=== PATIENT | female | born 1940 | race Caucasian/White ===

== ENCOUNTER 2019-05-23 11:21 | Inpatient (IN) | payer OTHER ==
--- OUTSIDE RECORDS SUMMARY | 2019-05-23 11:24 | XMS REPORT ---
:1940 [facility] Address [address] [place] [address] Care Team Providers Name Role Phone Unavailable Unavailable Unavailable Problems This patient has no known problems. Allergies, Adverse Reactions, Alerts This patient has no known allergies or adverse reactions. Medications This patient has no known medications. Encounters Start End Encounter Admission Attending Care Care Encounter Date/Time Date/Time Type Type Clinicians Facility Department ID 2019-04-26 2019-04-26 Outpatient [id number] 12:32:00 12:32:00
--- OUTSIDE RECORDS SUMMARY | 2019-05-23 11:24 | XMS REPORT ---
:1940 [facility] Team Providers Name Role Phone Ashley, Windy Provider Role Unavailable Allergies No Known Allergies Problems Problem Type Condition Code Onset Dates Condition Status Problem Obesity (BMI 30-39.9) E66.9 Active Problem Depression F32.9 Active Problem Diabetes E11.9 Active Problem Allergic rhinitis J30.9 Active Problem Essential hypertension I10 Active Problem Edema leg R60.0 Active Problem Controlled type 2 diabetes mellitus E11.9 Active without complication, without long-term current use of insulin Problem Cerebrovascular accident (CVA), I63.9 Active unspecified mechanism Problem Unsteady gait R26.81 Active Problem 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) Problem Hearing loss of both ears due to H61.23 Active cerumen impaction Problem Dysphagia as late effect of I69.391 Active cerebrovascular accident (CVA) Problem Type 2 diabetes mellitus with E11.22 Active diabetic chronic kidney disease Problem Chronic kidney disease, stage 4 N18.4 Active (severe) Problem History of CVA with residual I69.30 Active deficit Problem Coronary artery disease involving I25.10 Active [place] coronary artery of [place] heart without angina pectoris Problem CKD (chronic kidney disease), stage N18.4 Active IV Problem Chronic a-fib I48.2 Active Problem Chronic diastolic congestive heart I50.32 Active failure Problem Hospital discharge follow-up Z09 Active Problem Exposure to second hand smoke Z77.22 Active Problem Dyspnea, unspecified type R06.00 Active Problem At risk for falls Z91.81 Active Problem Familial hypercholesteremia E78.01 Active Problem Stented coronary artery Z95.5 Active Problem Non-ST elevation (NSTEMI) I21.4 Active myocardial infarction Problem Stage 3 chronic kidney disease N18.3 Active Problem 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
--- OUTSIDE RECORDS SUMMARY | 2019-05-23 11:24 | XMS REPORT ---
:1940 Author Organization eClinicalWorks Care Team Providers Name Role Phone Ashley, Windy Provider Role Unavailable Allergies, Adverse Reactions, Alerts Substance Reaction Event Type N.K.D.A. 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) Problem CKD (chronic kidney disease), stage N18.4 Active IV Problem Chronic a-fib I48.2 Active Assessment History of CVA with residual I69.30 Active deficit Problem Chronic diastolic congestive heart I50.32 Active failure Problem Hospital discharge follow-up Z09 Active Problem Exposure to second hand smoke Z77.22 Active Problem Dyspnea, unspecified type R06.00 Active Assessment Chronic kidney disease, stage 4 N18.4 Active (severe) Problem At risk for falls Z91.81 Active Assessment Chronic a-fib I48.2 Active Problem Familial hypercholesteremia E78.01 Active Assessment Cerebrovascular accident (CVA), I63.9 Active unspecified mechanism Problem Stented coronary artery Z95.5 Active Assessment Essential hypertension I10 Active Problem Non-ST elevation (NSTEMI) I21.4 Active myocardial infarction Assessment Familial hypercholesteremia E78.01 Active Problem Stage 3 chronic kidney disease N18.3 Active Assessment Dysphagia as late effect of I69.391 Active cerebrovascular accident (CVA) Problem 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 Problem Hyperlipidemia due to dietary fat E78.4 Active intake Problem Cold intolerance R68.89 Active Medications Medication Code Code Instructions Start End Status Dosage System Date Date Pradaxa [facility] 39565031873 75 MG Orally Active 1 capsule Twice a day Atorvastatin [facility] 13443319528 10 MG Orally Active 1 tablet Calcium Once a day Lasix [facility] 66534043076 40 MG Orally Inactive 1 tablet Once a day Metolazone [facility] 51269498432 2.5 MG Orally Active 1 tablet Once a day Spironolactone [facility] 51493729335 50 MG Orally Active 1 tablet Once a day with food Praluent [facility] 22731191711 150 MG/ML Active as Subcutaneous directed once every 2 weeks GlyBURIDE [facility] 20909671215 2.5 MG Orally Active 1/2 tab Once a day with dinner Xarelto [facility] 17488622181 15 MG Orally Inactive 1 tablet Once a day with food Metoprolol [facility] 69544694588 25 MG Orally Active 1 capsule Succinate Once a day Metoprolol [facility] 98475014502 50 MG Orally Active 1 tablet Tartrate Twice a day with food Lanoxin [facility] 67782334369 125 MCG Orally Active as directed Eliquis 2.5 mg [facility] 13196827337 2.5 mg by mouth Inactive one twice daily Bumetanide [facility] 47118160356 2 MG Orally Active as directed Folbee Plus CZ [facility] 28505622449 5 MG Orally Active 1 tablet Once a day Plavix [facility] 97494065700 75 MG Orally Active 1 tablet Once a day Colace [facility] 51266592013 100 MG Orally Active 1 capsule twice a day as needed Bumex [facility] 15453970690 1 MG Orally Active as directed Enalapril Maleate [facility] 72589364366 20 MG Orally Active 1 tablet Once a day Results No Known Results Summary Purpose eClinicalWorks Submission
--- OUTSIDE RECORDS SUMMARY | 2019-05-23 11:24 | XMS REPORT ---
:1940 Author Organization eClinicalWorks Care Team Providers Name Role Phone Ashley, Na Provider Role Unavailable Allergies No Known Allergies Problems Problem Type Condition Code Onset Dates Condition Status Assessment Screening for malignant neoplasm of Z12.39 Active breast Assessment Type 2 diabetes mellitus with E11.22 Active diabetic chronic kidney disease Assessment Chronic diastolic congestive heart I50.32 Active failure Problem Obesity (BMI 30-39.9) E66.9 Active Problem [...] Problem Coronary artery disease involving I25.10 Active [place] coronary artery of [place] heart without angina pectoris Assessment 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) Problem CKD (chronic kidney disease), stage N18.4 Active IV Problem Chronic a-fib I48.2 Active Assessment History of CVA with residual I69.30 Active deficit Problem Chronic diastolic congestive heart I50.32 Active failure Assessment Screening for osteoporosis Z13.820 Active Problem Hospital discharge follow-up Z09 Active Problem [...] Start End Status Dosage System Date Date Praluent [facility] 19585779096 150 MG/ML Active as Subcutaneous directed once every 2 weeks Bumex [facility] 91496156116 1 MG Orally Active as directed GlyBURIDE [facility] 97845163927 2.5 MG Orally Active 1/2 tab Once a day with dinner Lanoxin [facility] 15279605681 125 MCG Orally Active as directed Metoprolol [facility] 80501803704 25 MG Orally Active 1 capsule Succinate Once a day Atorvastatin [facility] 48898860873 10 MG Orally Active 1 tablet Calcium Once a day Lasix [facility] 07094513068 40 MG Orally Inactive 1 tablet Once a day Metolazone [facility] 52628731164 2.5 MG Orally Active 1 tablet Once a day Pradaxa [facility] 90208408881 75 MG Orally Active 1 capsule Twice a day Metoprolol [facility] 98912953375 50 MG Orally Active 1 tablet Tartrate Twice a day with food Eliquis 2.5 mg [facility] 63899234042 2.5 mg by mouth Inactive one twice daily Xarelto [facility] 69344332232 15 MG Orally Inactive 1 tablet Once a day with food Enalapril Maleate [facility] 37507291649 20 MG Orally Active 1 tablet Once a day Spironolactone [facility] 74519915789 50 MG Orally Active 1 tablet Once a day with food Folbee Plus CZ [facility] 36938135615 5 MG Orally Active 1 tablet Once a day Colace [facility] 39303759710 100 MG Orally Active 1 capsule twice a day as needed Plavix [facility] 91595340802 75 MG Orally Active 1 tablet Once a day Bumetanide [facility] 38719713037 2 MG Orally Active as directed Results No Known Results Summary Purpose eClinicalWorks Submission
--- OUTSIDE RECORDS SUMMARY | 2019-05-23 11:24 | XMS REPORT ---
[...] Problem Coronary artery disease involving I25.10 Active [place] coronary artery of [place] heart without angina pectoris Problem CKD (chronic [...] intake Problem Cold intolerance R68.89 Active Medications No Known Medications Results No Known Results Summary Purpose eClinicalWorks Submission
[2019-05-23] MEDS ORDERED: CLINDAMYCIN 900MG/D5W 900 MG/50 ML IVPB IV ONE (12:31)
[2019-05-23 12:57] LABS: Basophils % 0.6 % (0-1.3); Hematocrit 39.7 % (36.0-45.0); Lymphocytes % 16.7 % (15.3-44.8); MPV 9.5 fL (7.6-11.3); RBC Red Blood Cell Count 4.23 M/uL (3.86-4.86)
[2019-05-23 13:10] LABS: Potassium 4.5 mmol/L (3.5-5.1)
--- NOTE | 2019-05-23 13:13 | RAD REPORT ---
EXAM DESCRIPTION: RAD - Foot Right 2 View - 05/23/2019 1:05 pm CLINICAL HISTORY: Pain;Swelling COMPARISON: No comparisons FINDINGS: Moderate posterior and plantar calcaneal spurs. Soft tissue swelling is seen along the flakita sum of the mid and forefoot. No fracture is visualized.
--- NOTE | 2019-05-23 13:32 | EDPHYS ---
Physician Documentation [facility] Name: Michelle Campbell Age: 79 yrs Sex: Female : 1940 Arrival Date: 05/23/2019 Time: 11:23 Bed 24 Private MD: ED Physician Manjeet Paulino HPI: 05/23 16:45 This 79 yrs old Female presents to ER via Wheelchair with complaints of right kdr great tow pain and swelling. 16:45 The patient presents with pain, that is acute, swelling, tenderness. The complaints kdr affect the right foot. Context: The problem was sustained at home, resulted from The patient states that she was trimming her nails and may have cut her nail too close and now has cellulitis to the right great toe. Onset: The symptoms/episode began/occurred gradually, 2 day(s) ago. Modifying factors: The symptoms are alleviated by nothing, the symptoms are aggravated by weight bearing, movement. Associated signs and symptoms: The patient has no apparent associated signs or symptoms. Severity of symptoms: At their worst the symptoms were mild, in the emergency department the symptoms are unchanged. The patient has not experienced similar symptoms in the past. The patient has not recently seen a physician. Historical: - Allergies: 11:33 No Known Allergies; ca1 - PMHx: 11:33 Atrial Fib; Diabetes - NIDDM; CHF; ca1 16:12 CKD; TIA; vc - PSHx: 11:33 Hysterectomy; ca1 - Immunization history:: Adult Immunizations up to date, Pneumococcal vaccine is not up to date, Flu vaccine is up to date. - Coronavirus screen:: The patient has NOT traveled to [place], [place], or [place] in the past 14 days. The patient has NOT had contact with known/suspected case of Coronavirus?. - Social history:: Smoking status: Patient denies any tobacco usage or history of. - Ebola Screening: : Patient negative for fever greater than or equal to 101.5 degrees Fahrenheit, and additional compatible Ebola Virus Disease symptoms Patient denies exposure to infectious person Patient denies travel to an Ebola-affected area in the 21 days before illness onset No symptoms or risks identified at this time. ROS: 16:45 Constitutional: Negative for fever, chills, and weight loss, Eyes: Negative for injury, kdr pain, redness, and discharge, Neck: Negative for injury, pain, and swelling, Cardiovascular: Negative for chest pain, palpitations, and edema, Respiratory: Negative for shortness of breath, cough, wheezing, and pleuritic chest pain, Abdomen/GI: Negative for abdominal pain, nausea, vomiting, diarrhea, and constipation, Back: Negative for injury and pain, : Negative for injury, bleeding, discharge, and swelling, Skin: Negative for injury, rash, and discoloration, Neuro: Negative for headache, weakness, numbness, tingling, and seizure activity. Psych: Negative for depression, anxiety, suicide ideation, homicidal ideation, and hallucinations, Allergy/Immunology: Negative for hives, rash, and allergies, Endocrine: Negative for neck swelling, polydipsia, polyuria, polyphagia, and marked weight changes, Hematologic/Lymphatic: Negative for swollen nodes, abnormal bleeding, and unusual bruising. 16:45 MS/extremity: Positive for erythema, pain, swelling, tenderness, of the medial aspect of right toes, plantar aspect of right first toe, ball of right foot, right first toe and Right first toenail. Exam: 16:45 Musculoskeletal/extremity: ROM: limited active range of motion, limited passive range kdr of motion, in the medial aspect of right toes, plantar aspect of right first toe, right first toe and Right first toenail, Circulation is intact in all extremities. Sensation intact. Weight bearing: can bear weight with assistance only, Erythema to right great toe. 16:52 Constitutional: This is a well developed, well nourished patient who is awake, alert, kdr and in no acute distress. Head/Face: Normocephalic, atraumatic. Vital Signs: 11:33 BP 134 / 104; Pulse 96; Resp 19 S; Temp 97.6(O); Pulse Ox 96% on R/A; Weight 81.65 kg ca1 (R); Height 5 ft. 7 in. (170.18 cm) (R); Pain 2/10; 12:00 BP 109 / 77; Pulse 92; Resp 20; Pulse Ox 99% on R/A; vc 14:00 BP 134 / 121; Pulse 97; Resp 20; Pulse Ox 97% ; vc 15:30 BP 123 / 107; Pulse 79; Resp 18; Pulse Ox 96% on R/A; vc 11:33 Body Mass Index 28.19 (81.65 kg, 170.18 cm) ca1 MDM: 13:32 Patient medically screened. kdr 16:52 Data reviewed: vital signs, nurses notes, lab test result(s), radiologic studies. kdr Counseling: I had a detailed discussion with the patient and/or guardian regarding: the historical points, exam findings, and any diagnostic results supporting the discharge/admit diagnosis, lab results, radiology results, the need for further work-up and treatment in the hospital. 05/23 12:20 Order name: CBC with Diff; Complete Time: 13:01 kdr 05/23 12:20 Order name: Chem 7; Complete Time: 13:24 kdr 05/23 12:20 Order name: Foot Right 2 View XRAY; Complete Time: 13:24 kdr 05/23 12:20 Order name: Blood Culture Adult (2) kdr 05/23 15:05 Order name: Urine Dipstick--Ancillary (enter results) bd 05/23 14:07 Order name: Consistent Carb (ADA) 2000 Juan; Complete Time: 15:29 EDMS Administered Medications: 12:53 Drug: Clindamycin 900 mg Route: IVPB; Infused Over: 30 mins; Site: right antecubital; vc 13:23 Follow up: IV Status: Completed infusion vc 13:51 Drug: Bactrim (160 mg-800 mg (DS) 1 tablet Route: PO; vc 15:28 Follow up: Response: No adverse reaction vc Disposition: 05/23/19 13:32 Hospitalization ordered by Jordon Mark for Inpatient Admission. Preliminary diagnosis is Cellulitis of right lower limb - Right great toe. - Bed requested for Telemetry/MedSurg (Inpatient). - Status is Inpatient Admission. vc - Condition is Fair. - Problem is new. - Symptoms are unchanged. Signatures: Dispatcher [employer] EDMS Khadra Menchaca Kevin, MD MD kdr Sara De León RN RN ca1 Yvonne Gray RN RN vc Corrections: (The following items were deleted from the chart) 15:22 13:32 Hospitalization Ordered by Jordon Mark MD for Inpatient Admission. Preliminary bd diagnosis is Cellulitis of right lower limb - Right great toe. Bed requested for Telemetry/MedSurg (Inpatient). Status is Inpatient Admission. Condition is Fair. Problem is new. Symptoms are unchanged. kdr 16:20 15:22 05/23/2019 13:32 Hospitalization Ordered by Jordon Mark MD for Inpatient vc Admission. Preliminary diagnosis is Cellulitis of right lower limb - Right great toe. Bed requested for Telemetry/MedSurg (Inpatient). Status is Inpatient Admission. Condition is Fair. Problem is new. Symptoms are unchanged. bd
--- NOTE | 2019-05-23 13:32 | ER ---
Nurse's Notes [facility] Name: Michelle Campbell Age: 79 yrs Sex: Female : 1940 Arrival Date: 05/23/2019 Time: 11:23 Bed 24 Private MD: Diagnosis: Cellulitis of right lower limb-Right great toe Presentation: 05/23 11:28 Presenting complaint: Patient states: R foot swollen x 5-7 days.. C/o pain on that ca1 foot. Denies fever. Transition of care: patient was not received from another setting of care. Onset of symptoms was May 23, 2019. Risk Assessment: Do you want to hurt yourself or someone else? Patient reports no desire to harm self or others. Initial Sepsis Screen: Does the patient meet any 2 criteria? No. Patient's initial sepsis screen is negative. Does the patient have a suspected source of infection? No. Patient's initial sepsis screen is negative. Care prior to arrival: None. 11:28 Method Of Arrival: Wheelchair ca1 11:28 Acuity: LISETTE 3 ca1 Historical: - Allergies: 11:33 No Known Allergies; ca1 - PMHx: 11:33 Atrial Fib; Diabetes - NIDDM; CHF; ca1 16:12 CKD; TIA; vc - PSHx: 11:33 Hysterectomy; ca1 - Immunization history:: Adult Immunizations up to date, Pneumococcal vaccine is not up to date, Flu vaccine is up to date. - Coronavirus screen:: The patient has NOT traveled to [place], [place], or [place] in the past 14 days. The patient has NOT had contact with known/suspected case of Coronavirus?. - Social history:: Smoking status: Patient denies any tobacco usage or history of. - Ebola Screening: : Patient negative for fever greater than or equal to 101.5 degrees Fahrenheit, and additional compatible Ebola Virus Disease symptoms Patient denies exposure to infectious person Patient denies travel to an Ebola-affected area in the 21 days before illness onset No symptoms or risks identified at this time. Screenin:00 Abuse screen: Denies threats or abuse. Nutritional screening: No deficits noted. vc Tuberculosis screening: No symptoms or risk factors identified. Fall Risk None identified. Assessment: 13:00 General: Appears in no apparent distress. comfortable, Behavior is calm, cooperative, vc appropriate for age. Pain: Complains of pain in medial aspect of right toes, plantar aspect of right first toe, right first toe and Right first toenail. Neuro: Level of Consciousness is awake, alert, obeys commands, Oriented to person, place, time. Cardiovascular: Capillary refill < 3 seconds Patient's skin is warm and dry. Respiratory: Respiratory effort is even, unlabored. GI: No signs and/or symptoms were reported involving the gastrointestinal system. : No signs and/or symptoms were reported regarding the genitourinary system. EENT: No signs and/or symptoms were reported regarding the EENT system. Derm: Skin is pink, Reports pain pain to right greater toe, toe is inflamed with redness to middle of foot. Musculoskeletal: Range of motion: intact in all extremities. 14:00 Reassessment: Patient and/or family updated on plan of care and expected duration. Pain vc level reassessed. Patient is alert, oriented x 3, equal unlabored respirations, skin warm/dry/pink. Patient states feeling better. 14:58 Reassessment: Patient sitting on the edge of her bed eating her meal. vc 15:00 Reassessment: Patient and/or family updated on plan of care and expected duration. Pain vc level reassessed. Patient is alert, oriented x 3, equal unlabored respirations, skin warm/dry/pink. Patient states feeling better. 15:42 Reassessment: Attempted to call report to 4th floor. Nurse states they will call back. vc Vital Signs: 11:33 BP 134 / 104; Pulse 96; Resp 19 S; Temp 97.6(O); Pulse Ox 96% on R/A; Weight 81.65 kg ca1 (R); Height 5 ft. 7 in. (170.18 cm) (R); Pain 2/10; 12:00 BP 109 / 77; Pulse 92; Resp 20; Pulse Ox 99% on R/A; vc 14:00 BP 134 / 121; Pulse 97; Resp 20; Pulse Ox 97% ; vc 15:30 BP 123 / 107; Pulse 79; Resp 18; Pulse Ox 96% on R/A; vc 11:33 Body Mass Index 28.19 (81.65 kg, 170.18 cm) ca1 ED Course: 11:23 Patient arrived in ED. as 11:31 Triage completed. ca1 11:33 Arm band placed on right wrist. EKG completed in triage. Results shown to . ca1 11:36 Manjeet Paulino MD is Attending Physician. kdr 12:04 Yvonne Gray, RN is Primary Nurse. vc 12:34 Inserted saline lock: 22 gauge in right antecubital area, using aseptic technique. jp3 Blood collected. 12:34 Initial lab(s) drawn, by me, sent to lab. First set of blood cultures drawn by me. jp3 12:50 Second set of blood cultures drawn by me. jp3 12:52 Safety checks: Family/friend present: yes. Bed in low position. Call light in reach. jp3 Side rails up X 1. Side rails up X2. Warm blanket given. Verbal reassurance given. Pulse ox on. NIBP on. 13:07 Foot Right 2 View XRAY In Process Unspecified. EDMS 13:31 Jordon Mark MD is Hospitalizing Provider. kdr 15:02 Diet tray given. Diet: Patient given a diabetic meal tray. jp3 15:29 Urine Dipstick--Ancillary (enter results) Sent. vc 15:43 No provider procedures requiring assistance completed. Patient admitted, IV remains in vc place. Administered Medications: 12:53 Drug: Clindamycin 900 mg Route: IVPB; Infused Over: 30 mins; Site: right antecubital; vc 13:23 Follow up: IV Status: Completed infusion vc 13:51 Drug: Bactrim (160 mg-800 mg (DS) 1 tablet Route: PO; vc 15:28 Follow up: Response: No adverse reaction vc Outcome: 13:32 Decision to Hospitalize by Provider. kdr 15:43 Condition: good vc 16:06 Admitted to Tele accompanied by [facility], via wheelchair, room 425, Report called to vc Chitra RN 16:06 Discharge instructions given to patient, Instructed on the need for admit. 16:20 Patient left the ED. vc Signatures: Dispatcher [employer] EDNM Manjeet Paulino MD MD kdr Isabel Barry Jacob jp3 Sara De León RN RN ca1 Yvonne Gray, ALYSSA RN vc Corrections: (The following items were deleted from the chart) 15:30 14:58 Reassessment: Patient sitting on the egg of her bed eating her meal. vc vc
[2019-05-23] MEDS ORDERED: SMZ./TMP. 800/160 MG TABLET ONE (13:49)
[2019-05-23] MEDS ORDERED: ONDANSETRON 4 MG/2 ML VIAL IV PRN (16:42)
[2019-05-23] MEDS: INSULIN -REGULAR HUMAN 50 UNIT/0.5 ML ML SQ SCH ×2 (16:42→20:30)
[2019-05-23] MEDS ORDERED: ACETAMINOPHEN 500 MG TAB PO PRN (16:42)
[2019-05-23] MEDS ORDERED: CEFEPIME 2 GM VIAL IV ONE (16:42)
[2019-05-23] MEDS ORDERED: CEFEPIME/SWI 2gm 2 GM/20 ML SYR IVP ONE (17:00)
[2019-05-23] MEDS: NA CHLORIDE 0.9% 1,000 ML IV SCH (17:48)
[2019-05-23] MEDS ORDERED: VANCOMYCIN 1.5 GM in NA CHLORIDE 0.9% 500 ML IVPB SCH ×4 (18:00)
[2019-05-23] MEDS ORDERED: DOCUSATE NA 100 MG CAP PO PRN (18:39)
[2019-05-23 18:58] VITALS: BMI 28.1
[2019-05-23] MEDS: ATORVASTATIN 20 MG TAB PO SCH (20:26)
[2019-05-23] MEDS: DABIGATRAN 75 MG CAP PO SCH (20:26)
[2019-05-23] MEDS ORDERED: HOME MED 1 EA UNK (Pitavastatin Calcium [Livalo] 4 MG) PO SCH (21:00)
[2019-05-23] MEDS ORDERED: GLYBURIDE 5 MG PO SCH (21:00)
--- NOTE | 2019-05-24 00:43 | HP ---
Date of Admission: 05/23/2019 Chief Complaint: Redness and swelling of the right foot. Code Status: Full. Advanced care planning discussed with the patient. Primary Care Physician: Dr. Ashley. Consultants: Dr. Mckee with Nephrology. History Of Present Illness: The patient is an 79-year-old female with past medical history of chroni c kidney disease, diabetes, atrial fibrillation on Pradaxa, congestive heart failure, comes in with r edness and swelling of her right foot, specifically the first toe. Patient had clipped her toenails, however, caught part of the skin and has developed worsening erythema, swelling, pain to that toe as well as to the metatarsal area of the foot. Patient denies any specific fevers or chills; however s ymptoms are constant, moderate, progressively worsening, therefore came into the ER for further evalu ation. Her vital signs were stable. She was afebrile. Her workup revealed a white count of 11.8, c reatinine was elevated at 1.83. She has a history of chronic kidney disease, baseline is not known. Foot x-ray did not show any fractures or any free air. Patient was referred for admission. When se en in the ER, she was awake, alert, oriented x3, in some mild distress. Past Medical History: Diabetes mellitus type 2, tgn-dryzile-etfivcghz; atrial fibrillation, on Dung xa; congestive heart failure. Surgical History: Hysterectomy and partial colectomy for unknown reason. Patient unable to recall w hy she had the partial colectomy. Allergies: NO KNOWN DRUG ALLERGIES. Medications: Plavix 75 mg daily, digoxin 0.125 mg daily, Aldactone 25 mg daily, Pradaxa 75 mg b.i.d. , and Bumex 1 mg b.i.d. Social History: Patient is , has 2 daughters that live around [place] and [place]. She is i ndependent in her activities of daily living. Does use a walker and a cane for ambulation. Takes ca re of her . Family History: States that heart disease runs on the dad's side of the family. She is unaware of h er mother's family history. Review of Systems: Ten-point system reviewed, negative except as per HPI. Physical Examination: Vital Signs: Temperature 97.6, heart rate 96, blood pressure 134/104, respirations 19, O2 96% on ramu m air. General: Awake, alert, and oriented x3. Elderly female, ill-appearing, in some mild distress. HEENT: Normocephalic, atraumatic. PERRLA. EOMI. Moist mucous membranes. Oropharynx is clear. Co njunctivae are anicteric. Neck: Supple. No JVD. Trachea midline. CV: S1, S2, irregularly irregular. Peripheral pulses present. Respiratory: Moving air well bilaterally. No wheezing or stridor. No use of accessory muscles. Gastrointestinal: Abdomen is soft, nontender, nondistended. Positive bowel sounds. No guarding or rigidity. Healed incision scar. Extremities: No clubbing, cyanosis. Patient has some pedal edema on the right. Neuro: Cranial nerves 2 through 12 intact grossly. No focal neurological deficits. Speech is jessica l. Skin: Right foot erythema extending from the first toe to the metatarsal area. Tenderness to palpat ion. Warm to touch. Laboratory Data: Sodium 140, potassium 4.5, chloride 103, CO2 of 30, BUN 40, creatinine 1.83, glucos e 116, calcium 9.4. WBC 11.8, H and H 13 and 39.7, platelets 274, neutrophils 71%. X-ray of the foot personally reviewed shows moderate posterior and plantar calcaneal spurs. Soft tis eren swelling is seen along the dorsum of the mid and forefoot. No fracture is visualized. Assessment: An 79-year-old female with, 1.Right lower extremity cellulitis including the foot. We will start on broad spectrum IV antibioti cs including vancomycin and cefepime renally dosed. Blood cultures have been obtained. There is no drainage at this time likely resultant from injury to the first toe when patient was cutting her nail s. We will recommend the patient to see Podiatry as an outpatient. 2.Chronic kidney disease, unknown baseline stage III at this time. We will consult the patient's ne phrologist, Dr. Mckee. Monitor creatinine level and electrolytes. 3.Diabetes mellitus type 2, yss-mlypbwh-ssoyebkmy with chronic kidney disease. We will continue sli ding scale insulin and monitor blood glucose levels. 4.Atrial fibrillation, chronic, permanent. We will continue with rate control. Patient is on digox in and takes Pradaxa. 5.History of congestive heart failure, unknown ejection fraction, likely diastolic dysfunction. We will continue Aldactone. We will hold Bumex until baseline creatinine is known. We will continue wi th fluid restrictions. Plan: Admit patient to Med-Surg, place as inpatient. Length of stay greater than 2 midnights. RABIA Voice ID: [id number]
[2019-05-24] MEDS: HYDROCODONE/APAP 7.5/325 MG TAB PO PRN ×2 (01:30→20:39)
[2019-05-24 04:21] LABS: Absolute Lymphocytes (CBC) 2.4 K/uL (0.7-4.9); Basophils % 0.4 % (0-1.3); Hematocrit 34.3 % (36.0-45.0); Lymphocytes % 25.1 % (15.3-44.8); MPV 9.6 fL (7.6-11.3); RBC Red Blood Cell Count 3.64 M/uL (3.86-4.86)
[2019-05-24 04:57] LABS: Potassium 4.7 mmol/L (3.5-5.1)
[2019-05-24] MEDS: NA CHLORIDE 0.9% 1,000 ML IV SCH ×2 (07:01→17:08)
[2019-05-24] MEDS: INSULIN -REGULAR HUMAN 50 UNIT/0.5 ML ML SQ SCH ×4 (07:30→20:41)
[2019-05-24] MEDS: DIGOXIN 0.125 MG TABLET PO SCH (08:54)
[2019-05-24] MEDS: glyBURIDE 2.5 MG TAB PO SCH ×2 (08:54→17:08)
[2019-05-24] MEDS: CLOPIDOGREL 75 MG TABLET PO SCH (08:54)
[2019-05-24] MEDS: SPIRONOLACTONE 25 MG TABLET PO SCH (08:55)
[2019-05-24] MEDS: DABIGATRAN 75 MG CAP PO SCH ×2 (08:56→20:39)
[2019-05-24] MEDS ORDERED: VANCOMYCIN/NS 1 gm 1 GM/250 ML BAG IVPB SCH (09:00)
[2019-05-24] MEDS: CEFEPIME/SWI 2gm 2 GM/20 ML SYR IV SCH (12:44)
[2019-05-24 15:36] LABS: Urine Appearance CLEAR; Urine Bilirubin NEGATIVE (NEG); Urine Blood NEGATIVE (NEG); Urine Color YELLOW; Urine Glucose TRACE (NEG); Urine Protein NEGATIVE (NEG); Urine Urobilinogen 0.2 mg/dL (0.2-1.0)
[2019-05-24 15:42] LABS: Urine Microscopic Reflex NO UMIC
--- NOTE | 2019-05-24 18:02 | PN ---
Date of Progress Note: 05/24/2019 Subjective: Patient was seen and examined. Chart reviewed and case discussed with RN. Patient is doing better. Still has erythema and pain. States she is unable to put her foot down due to the pain. Medications: List reviewed. Physical Examination: Vital Signs: Temperature 97, heart rate 76, blood pressure 113/53, respirations 15, O2 94% on room air. General: Awake, alert, and oriented x3, in some mild distress. Elderly female , ill appearing. CV: S1, S2. Regular rate and rhythm. Peripheral pulses present. Respiratory: Moving air well bilaterally. No wheezing or stridor. No use of accessory muscles. Gastrointestinal: Abdomen is soft, nontender, nondistended. Positive bowel sounds. Extremities: No clubbing, cyanosis, or edema. Neurologic: Nonfocal. Skin: Patient has erythema of the right foot including the first toe and metatarsal slightly improved. Warm to touch. Slight tenderness to palpation. Laboratory Data: Sodium 143, potassium 4.7, chloride 109, CO2 29, BUN 45, creatinine 1.99, glucose 131, calcium 8.2. WBC 9.7, H and H 11.4 and 34.3, platelets 211. Blood cultures, no growth to date. Assessment And Plan: 79-year-old female with: 1. Right lower extremity cellulitis including the foot. Continue with vancomycin and cefepime renally dosed. Blood cultures are negative to date. X- ray did not show any acute fracture. Continue with IV antibiotics. 2. Acute on chronic kidney disease. Creatinine is 1.99, likely stage 3. Dr. Mckee has been consulted. We will continue to monitor. Continue IV fluids. 3. Diabetes mellitus type 2 rhi-ajfpwwg-myrghsitv with chronic kidney disease. Continue sliding scale insulin. Monitor blood glucose levels. 4. Atrial fibrillation, chronic, permanent. Continue with rate control. Continue digoxin and Pradaxa. 5. History of congestive heart failure, likely diastolic dysfunction, chronic. Continue with Aldactone. Bumex is on hold due to kidney dysfunction. 6. Deep vein thrombosis prophylaxis. Patient is on Pradaxa. Disposition: PT eval. Likely discharge in the next 24 to 48 hours depending on clinical response. May end up needing home health with PT versus SNF. SA/MODL Voice ID: [id number] Report ID: [id number] MTDD
[2019-05-24] MEDS: ATORVASTATIN 20 MG TAB PO SCH (20:40)
--- NOTE | 2019-05-24 20:55 | P.CNS ---
Date of Consult: 05/24/19 Reason for Consult: JHONATAN/ CKD Requesting Physician: Jordon Mark Chief Complaint: Right foot pain and erythema. History of Present Illness: The patient is an 79-year-old female with past medical history of chronic kidney disease, diabetes, atrial fibrillation on Pradaxa, congestive heart failure, comes in with redness and swelling of her right foot, specifically the first toe. Patient had clipped her toenails, however, caught part of the skin and has developed worsening erythema, swelling, pain to that toe as well as to the metatarsal area of the foot. Patient denies any specific fevers or chills; however symptoms are constant, moderate, progressively worsening, therefore came into the ER for further evaluation. Her vital signs were stable. She was afebrile. Her workup revealed a white count of 11.8, creatinine was elevated at 1.83. She has a history of chronic kidney disease, baseline is not known. Foot x-ray did not show any fractures or any free air. Patient was referred for admission. When seen in the ER, she was awake, alert, oriented x3, in some mild distress. 16:45 This 79 yrs old Female presents to ER via Wheelchair with complaints of right kdr great tow pain and swelling. 16:45 The patient presents with pain, that is acute, swelling, tenderness. The complaints kdr affect the right foot. Context: The problem was sustained at home, resulted from The patient states that she was trimming her nails and may have cut her nail too close and now has cellulitis to the right great toe. Onset: The symptoms/episode began/occurred gradually, 2 day(s) ago. Modifying factors: The symptoms are alleviated by nothing, the symptoms are aggravated by weight bearing, movement. Associated signs and symptoms: The patient has no apparent associated signs or symptoms. Severity of symptoms : At their worst the symptoms were mild, in the emergency department the symptoms are unchanged. The patient has not experienced similar symptoms in the past. The patient has not recently seen a physician. Allergies No Known Allergies Allergy (Verified 05/23/19 18:19) Home medications list reviewed: Yes Home Medications: Bumetanide 1 mg PO BID 05/23/19 Clopidogrel Bisulfate [Plavix*] 75 mg PO DAILY 05/23/19 Dabigatran Etexilate Mesylate [Pradaxa] 75 mg PO BID 05/23/19 Digoxin 125 mcg PO DIRECTED 05/23/19 Docusate Sodium 100 mg PO DAILY PRN 05/23/19 Enalapril Maleate [Vasotec] 20 mg PO BID 05/23/19 Metoprolol Succinate [Toprol Xl] 0.5 pill PO DAILY 05/23/19 Pitavastatin Calcium [Livalo] 4 mg PO BEDTIME 05/23/19 Spironolactone 25 mg PO BEDTIME 05/23/19 glyBURIDE [Glyburide] 5 mg PO BID 05/23/19 - Past Medical/Surgical History Diabetic: Yes -: 2 stents cardiac -: NIDDM -: TIA -: 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 -: CHF -: NEUROPATHY -: CKD -: A-FIBB SINCE 2013 -: HYSTERECTOMY -: POLOPS IN TRANSVERSE COLON - Family History Father Medical History: Heart disease, Hypertension - Social History Alcohol use: No CD- Drugs: No Caffeine use: Yes Place of Residence: Home Review of Systems 10-point ROS is otherwise unremarkable General: Weakness, Malaise Musculoskeletal: Foot Pain Integumentary: Rash Physical Examination Temp Pulse Resp BP Pulse Ox 97.1 F 78 15 120/56 L 95 05/24/19 16:00 05/24/19 16:00 05/24/19 16:00 05/24/19 16:00 05/24/19 16:00 General: In no apparent distress, Oriented x3, Cooperative HEENT: Atraumatic Neck: Supple Respiratory: Clear to auscultation bilaterally Cardiovascular: No edema, Regular rate/rhythm Gastrointestinal: Soft and benign, Non-distended Musculoskeletal: No clubbing, No contractures Integumentary: No cyanosis, Erythema Neurological: Abnormal speech Blood work reviewed in the chart. Imagings Data: EXAM DESCRIPTION: RAD - Foot Right 2 View - 05/23/2019 1:05 pm CLINICAL HISTORY: Pain;Swelling COMPARISON: No comparisons FINDINGS: Moderate posterior and plantar calcaneal spurs. Soft tissue swelling is seen along the dorsum of the mid and forefoot. No fracture is visualized. Conclusions/Impression: A/ JHONATAN, worse. Hypocalcemia. CKD III with proteinuria. DM II with CKD and Polyneuropathy. Diastolic CHF/ Edema. HTN with CKD/ CHF. Anemia in chronic illness. Right foot cellulitis. P/ Continue current POC and Medications. Change IVF 2NS. Continue spironolactone; monitor potassium. Continue abx. Follow up cultures. Start Vitamin D. Consider PT as tolerated. No NSAIDs. AM labs. Daily weight. Thank you kindly for the consultation.
[2019-05-24] MEDS: NACHLORIDE 0.45% 1,000 ML IV SCH (23:03)
[2019-05-25 04:37] LABS: Absolute Lymphocytes (CBC) 2.1 K/uL (0.7-4.9); Basophils % 0.5 % (0-1.3); Hematocrit 33.3 % (36.0-45.0); Lymphocytes % 21.9 % (15.3-44.8); MPV 9.6 fL (7.6-11.3)
[2019-05-25 04:49] LABS: Magnesium 2.4 mg/dL (1.8-2.4); Phosphorus 2.3 mg/dL (2.5-4.9); Potassium 4.5 mmol/L (3.5-5.1); Uric Acid 8.3 mg/dL (2.6-6.0)
[2019-05-25] MEDS: NACHLORIDE 0.45% 1,000 ML IV SCH (07:17)
[2019-05-25] MEDS: INSULIN -REGULAR HUMAN 50 UNIT/0.5 ML ML SQ SCH ×4 (07:30→20:19)
[2019-05-25] MEDS: glyBURIDE 2.5 MG TAB PO SCH ×2 (07:44→16:20)
[2019-05-25] MEDS: VITAMIN D 5,000 UNIT CAP PO SCH (07:44)
[2019-05-25] MEDS: HYDROCODONE/APAP 7.5/325 MG TAB PO PRN ×2 (07:45→20:19)
[2019-05-25] MEDS: DIGOXIN 0.125 MG TABLET PO SCH (07:45)
[2019-05-25] MEDS: SPIRONOLACTONE 25 MG TABLET PO SCH (07:46)
[2019-05-25] MEDS: CALCITROL 0.25 MCG CAP PO SCH (07:48)
[2019-05-25] MEDS: CLOPIDOGREL 75 MG TABLET PO SCH (07:48)
[2019-05-25] MEDS: DABIGATRAN 75 MG CAP PO SCH ×2 (07:48→20:18)
[2019-05-25] MEDS: CEFEPIME/SWI 2gm 2 GM/20 ML SYR IV SCH (07:48)
--- NOTE | 2019-05-25 11:40 | RAD REPORT ---
EXAM DESCRIPTION: MRIFoot Right Wo Cont05/25/2019 11:28 am CLINICAL HISTORY: Right foot pain COMPARISON: May 23, 2019 x-ray TECHNIQUE: Axial, sagittal and coronal magnetic resonance imaging of the right foot was obtained. FINDINGS: A few small, mild areas of abnormal signal within the bones probably degenerative in natur e. No significant abnormal signal seen to suggest osteomyelitis. Diffuse edema within the dorsal subcutaneous tissue No soft tissue abscess IMPRESSION: Diffuse edema within the dorsal subcutaneous tissue may indicate a cellulitis. No evidence of osteomyelitis
[2019-05-25] MEDS ORDERED: ROBITUSSIN DM PO PRN (13:15)
[2019-05-25] MEDS: allopurinoL 100 MG TAB PO SCH (13:46)
--- NOTE | 2019-05-25 17:41 | PN ---
Date of Progress Note: 05/25/2019 Subjective: The patient seen and examined, chart reviewed and case discussed with RN. Family at the bedside. Patient still having significant amount of pain and redness, however, has improved. Has b ariadne walked 20 feet with the physical therapist. Medications: List reviewed. Physical Examination: Vital Signs: Temperature 97.8, blood pressure 103/64, respirations 18, heart rate is 84, O2 is 95% o n room air. General: Awake, alert, oriented x3. Elderly female, ill-appearing, in mild distress due to pain. CV: S1, S2. Irregularly irregular. Peripheral pulses weak. Respiratory: Moving air well bilaterally. No wheezing or stridor. Gastrointestinal: Abdomen is soft, nontender, nondistended. Positive bowel sounds. No guarding or rigidity. Extremities: No clubbing, cyanosis. Patient has minimal edema of the right foot. Neuro: Nonfocal. Does have a little bit of weakness on the right lower extremity from history of pr evious CVA, 4+/5. Skin: Erythema of the right foot including the first metatarsal, improving. Patient has tenderness to palpation. Laboratory Data: Sodium 141, potassium 4.5, chloride 111, CO2 of 26, BUN is 27, creatinine 1.39, glu cose 74, uric acid is 8.3, calcium 8.4, phosphorus 2.3, magnesium 2.4. WBC 9.4, H and H 10.9 and 33. 3, platelets 211. Blood cultures, no growth to date. MRI of the foot shows diffuse edema within the dorsal subcutaneous tissue, may indicate cellulitis. No evidence of osteomyelitis. Assessment: 79-year-old female with: 1.Right lower extremity cellulitis including the foot. We will discontinue vancomycin once blood cu ltures are negative. Continue with cefepime. MRI of the foot does not show any osteomyelitis. 2.Acute on chronic kidney disease, improving, stage 3. Creatinine is down to 1.39 today. Rafita Mckee's input. 3.Diabetes mellitus type 2, ijs-jjifatf-gorqgcbuk with chronic kidney disease. We will continue sli ding scale insulin and monitor blood glucose levels. 4.Atrial fibrillation, chronic, permanent. Continue with rate control. Patient is on digoxin and P radaxa. 5.History of congestive heart failure, diastolic dysfunction. We will continue Aldactone. Bumex on hold. 6.Deep venous thrombosis prophylaxis. Patient is on Pradaxa. Discontinue IV fluids. Patient sound s somewhat wet on the lungs, not working well with PT, has only ambulated 20 feet. Has requested tra nsfer to nursing home facility. Patient has chosen [facility]. 7.Uricemia. Uric acid level is elevated. We will start on allopurinol. SA/MODL Voice ID: [id number] Report ID: [id number]
--- NOTE | 2019-05-25 19:57 | P.PN ---
Date of Service: 05/25/19 Vital Signs Temp Pulse Resp BP Pulse Ox 98.1 F 89 18 103/68 100 05/25/19 16:00 05/25/19 16:00 05/25/19 16:00 05/25/19 16:00 05/25/19 16:00 Medications Acetaminophen (Tylenol -Extra Strength) 500 mg PO Q6H PRN PRN Reason: Pain scale 2-4 (Mild) Stop: 06/22/19 16:43 Hydrocodone Bitart/Acetaminophen ([place] 7.5/325 Mg) 1 tab PO Q4H PRN PRN Reason: PAIN Stop: 06/22/19 16:43 Last Admin: 05/25/19 07:45 Dose: 1 tab Allopurinol (Zyloprim) 100 mg PO DAILY [facility] Stop: 06/24/19 13:14 Last Admin: 05/25/19 13:46 Dose: 100 mg Atorvastatin Calcium (Lipitor) 20 mg PO BEDTIME [facility] Stop: 06/22/19 21:01 Last Admin: 05/24/19 20:40 Dose: 20 mg Calcitriol (Rocaltrol) 0.5 mcg PO DAILY [facility] Stop: 06/24/19 09:01 Last Admin: 05/25/19 07:48 Dose: 0.5 mcg Cholecalciferol (Vitamin D 5,000 Iu Cap) 5,000 unit PO DAILY [facility] Stop: 06/24/19 09:01 Last Admin: 05/25/19 07:44 Dose: 5,000 unit Clopidogrel Bisulfate (Plavix) 75 mg PO DAILY [facility] Stop: 06/23/19 09:01 Last Admin: 05/25/19 07:48 Dose: 75 mg Dabigatran (Pradaxa) 75 mg PO BID [facility] Stop: 06/22/19 21:01 Last Admin: 05/25/19 07:48 Dose: 75 mg Digoxin (Lanoxin) 0.125 mg PO DAILY [facility] Stop: 06/23/19 09:01 Last Admin: 05/25/19 07:45 Dose: 0.125 mg Docusate Sodium (Colace Cap) 100 mg PO DAILY PRN PRN Reason: CONSTIPATION Stop: 06/22/19 18:40 Last Admin: 05/24/19 20:43 Dose: 100 mg Glyburide (Diabeta) 5 mg PO BIDWM [facility] Stop: 06/23/19 08:01 Last Admin: 05/25/19 16:20 Dose: Not Given Home Med (Home Med) 0 ea PO Q4H PRN PRN Reason: COUGH Stop: 06/24/19 13:16 Cefepime HCl (Maxipime 2 Gm/20 Ml Swi Ivp) 2 gm in 20 mls @ 240 mls/hr IV DAILY [facility] Stop: 06/23/19 11:31 Last Admin: 05/25/19 07:48 Dose: 20 mls Insulin Human Regular (Novolin -R) 0 unit SQ ACHS [facility]; Protocol Stop: 06/22/19 16:43 Last Admin: 05/25/19 15:36 Dose: Not Given Ondansetron HCl (Zofran) 4 mg IV Q4H PRN PRN Reason: NAUSEA / VOMITING Stop: 06/22/19 16:43 Sodium Chloride (Normal Saline Flush) 10 ml IV BID [facility] Stop: 06/22/19 21:01 Last Admin: 05/25/19 07:48 Dose: 10 ml Spironolactone (Aldactone) 25 mg PO DAILY [facility] Stop: 06/23/19 09:01 Last Admin: 05/25/19 07:46 Dose: 25 mg Microbiology Results 05/23/19 12:50 Blood - Blood Aerobic Blood Culture - Preliminary No growth in 24 hours. 05/23/19 12:50 Blood - Blood Anaerobic Blood Culture - Preliminary No growth in 24 hours. 05/23/19 12:34 Blood - Blood Aerobic Blood Culture - Preliminary No growth in 24 hours. 05/23/19 12:34 Blood - Blood Anaerobic Blood Culture - Preliminary No growth in 24 hours. Assessment/ Plan: Nephrology. Still with right foot pain. CPS stable without CP or SOB. No acute events overnight. Vitals, medications, blood work and imaging reviewed in the chart. General: In no apparent distress, Oriented x3, Cooperative HEENT: Atraumatic Neck: Supple Respiratory: Clear to auscultation bilaterally Cardiovascular: No edema, Regular rate/rhythm Gastrointestinal: Soft and benign, Non-distended Musculoskeletal: No clubbing, No contractures Integumentary: No cyanosis, Erythema Neurological: Abnormal speech Blood work reviewed in the chart. Imagings Data: EXAM DESCRIPTION: RAD - Foot Right 2 View - 05/23/2019 1:05 pm CLINICAL HISTORY: Pain;Swelling COMPARISON: No comparisons FINDINGS: Moderate posterior and plantar calcaneal spurs. Soft tissue swelling is seen along the dorsum of the mid and forefoot. No fracture is visualized. Conclusions/Impression: A/ JHONATAN, worse. Hypocalcemia. CKD III with proteinuria. DM II with CKD and Polyneuropathy. Diastolic CHF/ Edema. HTN with CKD/ CHF. Anemia in chronic illness. Right foot cellulitis. Gout? P/ Continue current POC and Medications. Hold IVF. Allopurinol and Colchicine ordered. Continue spironolactone; monitor potassium. Continue abx. Follow up cultures. Consider PT as tolerated. No NSAIDs. AM labs. Daily weight.
[2019-05-25] MEDS: COLCHICINE 0.6 MG TAB PO SCH (20:18)
[2019-05-25] MEDS: ATORVASTATIN 20 MG TAB PO SCH (20:18)
[2019-05-26 04:43] LABS: Absolute Lymphocytes (CBC) 2.4 K/uL (0.7-4.9); Basophils % 0.5 % (0-1.3); Lymphocytes % 27.3 % (15.3-44.8); MPV 9.3 fL (7.6-11.3); RBC Red Blood Cell Count 3.58 M/uL (3.86-4.86)
[2019-05-26 04:55] LABS: Potassium 4.7 mmol/L (3.5-5.1)
[2019-05-26] MEDS: INSULIN -REGULAR HUMAN 50 UNIT/0.5 ML ML SQ SCH ×3 (07:30→16:26)
[2019-05-26] MEDS: glyBURIDE 2.5 MG TAB PO SCH ×2 (08:00→16:26)
[2019-05-26] MEDS: VITAMIN D 5,000 UNIT CAP PO SCH (08:36)
[2019-05-26] MEDS: DABIGATRAN 75 MG CAP PO SCH (08:36)
[2019-05-26] MEDS: COLCHICINE 0.6 MG TAB PO SCH (08:36)
[2019-05-26] MEDS: CALCITROL 0.25 MCG CAP PO SCH (08:37)
[2019-05-26] MEDS: DIGOXIN 0.125 MG TABLET PO SCH (08:37)
[2019-05-26] MEDS: allopurinoL 100 MG TAB PO SCH (08:37)
[2019-05-26] MEDS: CLOPIDOGREL 75 MG TABLET PO SCH (08:37)
[2019-05-26 08:43] VITALS: O2SAT 98
[2019-05-26] MEDS: HYDROCODONE/APAP 7.5/325 MG TAB PO PRN (08:54)
[2019-05-26] MEDS: SPIRONOLACTONE 25 MG TABLET PO SCH (08:54)
[2019-05-26] MEDS: CEFEPIME/SWI 2gm 2 GM/20 ML SYR IV SCH (09:00)
[2019-05-26] MEDS ORDERED: DOXYCYCLINE 100 MG CAP PO SCH (11:30)
--- NOTE | 2019-05-26 12:45 | RAD REPORT ---
EXAM DESCRIPTION: CT - Head Brain Wo Cont - 05/26/2019 12:28 pm CLINICAL HISTORY: altered speech COMPARISON: No comparisons TECHNIQUE: Axial 5 mm thick images of the head were obtained without IV contrast. All CT scans are performed using dose optimization technique as appropriate and may include automated exposure control or mA/KV adjustment according to patient size. FINDINGS: No intracranial hemorrhage, mass, edema or shift of mid-line structures. No acute infarcti on changes seen. Patient has underlying mild atrophy. Moderate severity chronic ischemic changes are present. There is an old small CVA in the posterior left parietooccipital junction near the midline. Ventricles are in proportion to the amount of atrophy. Arterial and physiologic calcifications are pr esent. Mastoid air cells and visualized portions of the paranasal sinuses are clear. No acute bony findings. IMPRESSION: No hemorrhage present. No acute cortical based infarction identifiable. Atrophy changes are mild. Moderate chronic ischemic changes are present. Chronic ischemic change can potentially mask a nonhemorrhagic CVA. Follow-up MR imaging could be perf ormed as clinical findings warrant.
[2019-05-26 16:57] VITALS: BP 116/66; TEMP 97.9
--- NOTE | 2019-05-26 17:10 | PN ---
Date of Progress Note: 05/26/2019 Subjective: Patient is seen and examined. Chart reviewed and case discussed with RN. Patient seems to be doing better. at the bedside. Treatment plan explained, all questions answered. Medications: List reviewed. Physical Examination: Vital Signs: Temperature 98.2, heart rate 89, blood pressure 120/79, respirations 16, O2 of 98% on r oom air. General: Awake, alert, somewhat confused this morning. According to the , speech is abnormal . CV: S1, S2. Regular rate and rhythm. Respiratory: Moving air well bilaterally. Abdomen: Soft, nontender, nondistended. Positive bowel sounds. Extremities: No clubbing, cyanosis. Patient has pedal edema. Neurologic: Nonfocal. Skin: Patient has erythema of the right foot and 1st metatarsal significantly improved, still some t enderness to palpation. Warm to touch. Laboratory Data: Sodium 142, potassium 4.7, chloride 113, CO2 of 24, BUN 24, creatinine 1.21, glucos e 74. WBC 8.8, H and H of 11.2 and 34, platelets 223. Blood cultures, no growth to date. Assessment: 79-year-old female with: 1.Acute change in speech. We will obtain head CT scan, rule out cerebrovascular accident. 2.Right lower extremity cellulitis including foot and will continue cefepime and add Doxycycline for methicillin-resistant Staphylococcus aureus coverage. Cultures are negative. 3.Acute on chronic kidney disease, improving, stage III. Appreciate Dr. Mckee's input. 4.Diabetes mellitus type 2, qvl-uueybgw-nyjwwhgxg with chronic kidney disease. Continue sliding sca le insulin. Monitor blood glucose levels. 5.Atrial fibrillation, chronic, permanent. Continue with rate control. Patient is on digoxin and P radaxa. 6.History of congestive heart failure, diastolic dysfunction. We will continue with Aldactone. 7.Uricemia. Continue allopurinol. 8.Deep venous thrombosis prophylaxis. Continue Pradaxa. Plan: Discharge to [facility] once accepted. /CESARL Voice ID: [id number] Report ID: [id number]
--- NOTE | 2019-05-26 20:12 | P.PN ---
Date of Service: 05/26/19 Vital Signs Temp Pulse Resp BP Pulse Ox 97.9 F 71 16 116/66 97 05/26/19 16:00 05/26/19 16:00 05/26/19 16:00 05/26/19 16:00 05/26/19 16:00 Microbiology Results 05/23/19 12:50 Blood - Blood Aerobic Blood Culture - Preliminary No growth in 24 hours. 05/23/19 12:50 Blood - Blood Anaerobic Blood Culture - Preliminary No growth in 24 hours. 05/23/19 12:34 Blood - Blood Aerobic Blood Culture - Preliminary No growth in 24 hours. 05/23/19 12:34 Blood - Blood Anaerobic Blood Culture - Preliminary No growth in 24 hours. Assessment/ Plan: Nephrology. Feeling better today. CPS stable without CP or SOB. No acute events overnight. Vitals, medications, blood work and imaging reviewed in the chart. General: In no apparent distress, Oriented x3, Cooperative HEENT: Atraumatic Neck: Supple Respiratory: Clear to auscultation bilaterally Cardiovascular: No edema, Regular rate/rhythm Gastrointestinal: Soft and benign, Non-distended Musculoskeletal: No clubbing, No contractures Integumentary: No cyanosis, Erythema Neurological: Abnormal speech Blood work reviewed in the chart. Imagings Data: EXAM DESCRIPTION: RAD - Foot Right 2 View - 05/23/2019 1:05 pm CLINICAL HISTORY: Pain;Swelling COMPARISON: No comparisons FINDINGS: Moderate posterior and plantar calcaneal spurs. Soft tissue swelling is seen along the dorsum of the mid and forefoot. No fracture is visualized. Conclusions/Impression: A/ JHONATAN, worse. Hypocalcemia. CKD III with proteinuria. DM II with CKD and Polyneuropathy. Diastolic CHF/ Edema. HTN with CKD/ CHF. Anemia in chronic illness. Right foot cellulitis. Gout? P/ Continue current POC and Medications. Continue Allopurinol. Colchicine as needed. Continue abx. Follow up cultures. Consider PT as tolerated. No NSAIDs. AM labs. Daily weight.
--- NOTE | 2019-05-28 00:58 | DS ---
Date of Discharge: 05/26/2019 Consultants: Dr. Mckee with Nephrology. Admitting Diagnoses: 1.Cellulitis of the right lower extremity including the foot. 2.Chronic kidney disease likely stage III. 3.Diabetes mellitus type 2, llp-[id number]-wzsitnwyi with chronic kidney disease. 4.Atrial fibrillation, chronic, permanent. 5.History of congestive heart failure, diastolic dysfunction. Discharge Diagnoses: 1.Cellulitis of the right lower extremity including the foot, improved. 2.Altered speech. CT head negative for cerebrovascular accident. 3.Acute on chronic kidney disease stage 3, improved. 4.Atrial fibrillation, chronic, permanent, on digoxin and Pradaxa. 5.History of congestive heart failure, diastolic dysfunction. 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 7.Overweight, BMI 29.6. 8.History of cerebrovascular accident. Hospital Course: Patient is an 79-year-old female who was admitted to the hospital for redness and s welling of the right foot. Patient trimmed her nails too closely and developed cellulitis. She was started on IV fluids and cultures were obtained. Her blood cultures remained negative to date. She did have improvement with treatment. Her leg was elevated. She did have some peripheral edema, whic h improved with ambulation and elevation of her leg. Pain also improved. MRI of the foot was done t o rule out any osteomyelitis due to continued pain and was negative. Overall, patient did well. She worked with physical therapy, however, was not stable on her feet. She does have a history of old C [facility] as well. The patient was then referred to longterm facility. During the hospital course, she did have some change in her speech pattern and head CT scan was done, which did not show any acut e changes. Her speech did return to normal. It should be noted that she has altered speech due to h istory of cerebrovascular accident. Patient was then referred to [facility] and was then discharged to SNF in a stable condition. Her white count improved. She was not septic, not bacteremic. She w ill finish off course of antibiotics p.o. Condition: Stable. Activity: As tolerated. Fall precautions. Ambulate with assist. Diet: Diabetic. Followup: Follow up with primary care physician in 2-3 days. Follow up with Podiatry, Dr. Acosta in 2 weeks. Return to ER for worsening condition. For physical exam findings, please see progress note dictated on the day of discharge. Total time spent discharging patient was 34 minutes. /AKASH Voice ID: [id number] Report ID: [id number]
== END 2019-05-26 16:42 | DRG 603 ==
LOC: ER 11:21 → INTOOBSV 14:00 → OBSVTOIN 14:00 → ERHOLD 14:00 → 4TH 15:54
PROVIDERS: ADMIT Family Medicine; ATTEND Family Medicine
DX: L03.115 Cellulitis of right lower limb (principal); I13.0 Hypertensive heart and chronic kidney disease with heart failure and stage 1 through stage 4 chronic kidney disease, or unspecified chronic kidney disease; I50.32 Chronic diastolic (congestive) heart failure; N17.9 Acute kidney failure, unspecified; I48.21 Permanent atrial fibrillation; E11.22 Type 2 diabetes mellitus with diabetic chronic kidney disease; N18.3 Chronic kidney disease, stage 3 (moderate); I69.328 Other speech and language deficits following cerebral infarction; Z79.01 Long term (current) use of anticoagulants; E79.0 Hyperuricemia without signs of inflammatory arthritis and tophaceous disease; E66.3 Overweight; Z68.29 Body mass index [BMI] 29.0-29.9, adult; E83.51 Hypocalcemia
CPT/HCPCS: 36415; 70450; 80048; 80202; 81003; 82947; 83735; 84100; 84550; 85025; 87040; 94760; 96365; 97116; 97161; 97530; 99285; J0692; J7030; J7040